=== PATIENT | female | born 1995 ===

== ENCOUNTER 2022-02-13 20:16 | Emergency (ER) | payer OTHER ==
[2022-02-13 21:57] VITALS: BP 139/58
== END 2022-02-14 03:00 | disposition left against medical advice (07) ==
LOC: ED 20:16
DX: R07.9 Chest pain, unspecified (principal); Z53.21 Procedure and treatment not carried out due to patient leaving prior to being seen by health care provider; V89.2XXA Person injured in unspecified motor-vehicle accident, traffic, initial encounter; Y93.89 Activity, other specified; Y92.89 Other specified places as the place of occurrence of the external cause; Y99.8 Other external cause status